=== PATIENT | male | born 1985 | race African-American/Black ===

== ENCOUNTER 2020-02-20 22:59 | Observation (INO) ==
[2020-02-21] MEDS ORDERED: Naloxone 0.4 MG/ML INJ IVP PRN (01:23)
[2020-02-21] MEDS ORDERED: 0.9 % Sodium Chloride 1,000 ML IVC SCH (01:30)
[2020-02-21] MEDS ORDERED: *HR* Heparin 5,000 UNIT/ML VIAL IVP ONE (02:48)
[2020-02-21] MEDS ORDERED: *HR* Heparin 5,000 UNIT/ML VIAL IVP PRN ×2 (02:48)
[2020-02-21] MEDS ORDERED: Heparin 25,000 UNIT/250 ML D5W 25,000 UNIT/250 ML IV.SOLN IVC SCH (03:00)
[2020-02-21] MEDS: D5% in 0.9% NACL 1,000 ML IVC SCH ×2 (03:20→14:35)
[2020-02-21 09:25] LABS: Hematocrit 43.8 % (37.5-50.1); Mean Corpuscular HGB Conc 34.2 g/dL (31.6-35.5); Mean Corpuscular Hemoglobin 30.1 pg (28.0-33.3); Mean Platelet Volume 10.3 fL (9.4-12.4); Platelet Count 264 K/mcL (140-400); Red Blood Count 4.98 M/mcL (4.19-5.50); Red Cell Distribution Width 12.1 % (11.5-14.5); White Blood Count 6.5 K/mcL (4.3-11.1)
[2020-02-21 09:44] LABS: Estimated Average Glucose 123 mg/dl
[2020-02-21 09:45] LABS: Heparin anti-factor XA UFH 0.41 IU/mL (0.30-0.70); INR 1.1; Prothrombin Time 12.8 Seconds (9.4-12.1)
[2020-02-21 09:48] LABS: Troponin I 0.05 ng/mL (< 0.04)
[2020-02-21 10:03] LABS: BUN/Creatinine Ratio 8 (6-26); Blood Urea Nitrogen 9 mg/dL (6-20); Calcium 9.1 mg/dL (8.6-10.3); Carbon Dioxide 23 mEq/L (23-29); Chloride 109 mEq/L (98-107); Creatine Kinase 642 Units/L (30-223); Glucose 113 mg/dL (70-105); Osmolality,Calculated 287 (280-300); Potassium 3.5 mEq/L (3.5-5.1); Sodium 139 mEq/L (136-145); Thyroid Stimulating Hormone 1.062 mcIU/mL (0.340-5.600); eGFR For African Americans > 60 (> 60); eGFR For Non-African Americans > 60 (> 60)
[2020-02-21] MEDS ORDERED: Albuterol 2.5 MG/3 ML NEBULIZER IH PRN (10:27)
[2020-02-21] MEDS ORDERED: predniSONE 20 MG TABLET PO SCH (10:30)
[2020-02-21] MEDS ORDERED: Albuterol 2.5 MG/3 ML NEBULIZER IH SCH (10:30)
[2020-02-21] MEDS ORDERED: Fluticasone Propionate Nasal 50 MCG/SPRAY BOTTLE NS SCH (10:45)
[2020-02-21 13:02] VITALS: BP 138/87
== END 2020-02-21 15:20 | disposition left against medical advice (07) ==
LOC: 3BNU → SUATTDRO 02-21 00:51
PROVIDERS: ADMIT Internal Medicine; ATTEND Internal Medicine